=== PATIENT | female | born 1945 | race Hispanic/Latino ===

== ENCOUNTER 2019-02-18 23:19 | Emergency (ER) | payer MEDICARE ==
[2019-02-18] MEDS ORDERED: NACL 0.9% 1000 ML 1,000 ML ONE (23:31)
[2019-02-18] MEDS ORDERED: VICKS SINEX ONE (23:36)
--- NOTE | 2019-02-18 23:45 | Emergency Department Report ---
HPI - General Chief Complaint: Nosebleed Time Seen by Provider: 02/18/19 23:29 - HPI HPI: Room 18 The patient is 73-year-old female presenting with a chief complaint of epistaxis. The patient states at 22:00 this evening she developed a spontaneous nosebleed. Patient denies any recent trauma or picking at her nose. The patient states she had 2 other episodes of epistaxis in the past 4 weeks. Patient states she has not yet seen an ear nose and throat doctor. Patient is currently taking Eliquis for atrial fibrillation Location: Nose Duration: [See above] Quality: [See above] Severity: [See above] Modifying factors: [see above] Context: [see above] Mode of transportation: [not driving] ED Past Medical Hx - Past Medical History Previous Medical History?: Yes Hx Hypertension: Yes Hx Arthritis: Yes Hx Asthma: Yes Additional medical history: PUD. Sarcoidosis - Surgical History Past Surgical History?: Yes Hx Pacemaker: Yes Additional Surgical History: hysterectomy. hernia repair. Patient states that she was taken off Coumadin and digoxin. She had previous hospitalization I presume was for atrial fibrillation when these medications were begun. - Family History Family history: no significant - Social History Smoking Status: Never Smoker Substance Use Type: None - Medications Home Medications: Home Medications Medication Instructions Recorded Confirmed Last Taken Type Fluticasone/Salmeterol [Advair 1 puff IH BID 06/20/13 02/13/15 06/06/13 19:00 History Diskus 250-50 mcg] Levothyroxine [Synthroid] 100 mcg PO QAM 06/20/13 02/13/15 11/17/13 History Simvastatin 10 mg PO QHS 06/20/13 02/13/15 11/16/13 History Losartan [Cozaar] 25 mg PO QDAY #30 tablet 06/25/13 02/13/15 Unknown Rx dilTIAZem CD [Cardizem CD] 300 mg PO QDAY 02/13/15 02/13/15 Unknown History Digoxin [Lanoxin] 0.125 mg PO DAILY@1700 #30 tablet 02/18/15 Unknown Rx Famotidine [Pepcid] 20 mg PO BID #60 tablet 02/18/15 Unknown Rx Warfarin [Coumadin] 7.5 mg PO DAILY@1700 #30 tablet 02/18/15 Unknown Rx dilTIAZem CD [Cardizem CD] 300 mg PO Q24H #30 capsule 02/18/15 Unknown Rx Amoxicillin/Potassium Clav 1 each PO BID #14 tablet 02/19/19 Unknown Rx [Augmentin 500-125 Tablet] ED Review of Systems ROS: Stated complaint: NOSE BLEED Other details as noted in HPI Constitutional: no symptoms reported Eyes: denies: eye pain ENT: epistaxis Respiratory: no symptoms reported Cardiovascular: denies: chest pain Endocrine: no symptoms reported Gastrointestinal: denies: abdominal pain Genitourinary: denies: dysuria Musculoskeletal: denies: back pain Neurological: denies: headache Physical Exam - Physical Exam Vital Signs: Vital Signs 02/18/19 23:25 Temperature 97.1 F L Pulse Rate 59 L Respiratory 18 Rate Blood Pressure 148/59 O2 Sat by Pulse 98 Oximetry Physical Exam: GENERAL: The patient is well-developed well-nourished female lying on stretcher holding called to her nose HEENT: Normocephalic. Atraumatic. Extraocular motions are intact. Patient has moist mucous membranes. NECK: Supple. Trachea midline CHEST/LUNGS: There is no respiratory distress noted. HEART/CARDIOVASCULAR: Regular. There is no tachycardia. There is no gallop rub or murmur. SKIN: There is no rash. There is no edema. There is no diaphoresis. NEURO: The patient is awake, alert, and oriented. The patient is cooperative. The patient has normal speech MUSCULOSKELETAL: There is no evidence of acute injury. ED Course Vital Signs 02/18/19 23:25 Temperature 97.1 F L Pulse Rate 59 L Respiratory 18 Rate Blood Pressure 148/59 O2 Sat by Pulse 98 Oximetry - Reevaluation(s) Reevaluation #1: 02/19/19 00:[address] Patient currently hemostatic. Oropharynx clear Reevaluation #2: 02/19/19 00:52 Patient remains hemostatic. Strong warnings given ED Medical Decision Making - Lab Data Result diagrams: 02/18/19 23:41 02/18/19 23:41 - Medical Decision Making Oxymetazoline soaked gauze placed in bilateral nostrils with tongue depressor clamp placed on nose - Differential Diagnosis epistaxis Critical care attestation.: If time is entered above; I have spent that time in minutes in the direct care of this critically ill patient, excluding procedure time. ED Disposition Clinical Impression: Epistaxis Disposition: DC-01 TO HOME OR SELFCARE Is pt being admited?: No Does the pt Need Aspirin: No Condition: Stable Instructions: Epistaxis (ED) Additional Instructions: Return to the emergency department immediately should you develop worsening symptoms, fever, inability to tolerate food or liquid or any other concerns. Prescriptions: Amoxicillin/Potassium Clav [Augmentin 500-125 Tablet] 1 each PO BID #14 tablet Referrals: KERA PIERCE MD [Primary Care Provider] - 3-5 Days DAVID BRANNON MD [Staff Physician] - [facility] (Dr Brannon is an ear nose and throat doctor (electric motor repairer). Please follow up with him for further evaluation) Time of Disposition: 00:52
[2019-02-18] MEDS ORDERED: NACL 0.9% 1000 ML 1,000 ML IV ONE (23:50)
[2019-02-18] MEDS ORDERED: HYDROGEN PEROXIDE ONE (23:54)
[2019-02-18 23:57] LABS: Basophils # (Auto) 0.1 K/mm3 (0.0-0.1); Basophils % (Auto) 0.7 % (0.0-1.8); Eosinophils # (Auto) 0.2 K/mm3 (0.0-0.4); Eosinophils % (Auto) 1.8 % (0.0-4.3); Hematocrit 43.5 % (30.3-42.9); Hemoglobin 14.4 gm/dl (10.1-14.3); Lymphocytes # (Auto) 0.7 K/mm3 (1.2-5.4); Lymphocytes % (Auto) 5.4 % (13.4-35.0); Mean Corpuscular HGB Conc 33 % (30-34); Mean Corpuscular Volume 85 fl (79-97); Monocytes # (Auto) 0.6 K/mm3 (0.0-0.8); Monocytes % (Auto) 4.9 % (0.0-7.3); Platelet Count 269 K/mm3 (140-440); Red Blood Count 5.12 M/mm3 (3.65-5.03); Red Cell Distribution Width 16.6 % (13.2-15.2)
[2019-02-19 00:07] LABS: INR 1.31 (0.87-1.13)
[2019-02-19 00:08] LABS: Partial Thromboplastin Time 35.6 Sec. (24.2-36.6)
[2019-02-19 00:11] LABS: BUN/Creatinine Ratio 20; Blood Urea Nitrogen 14 mg/dL (7-17); Calcium 9.1 mg/dL (8.4-10.2); Hemolysis Index 9
[2019-02-19] MEDS ORDERED: VICKS SINEX NS ONE (00:35)
[2019-02-19 01:11] VITALS: BP 160/73
== END 2019-02-19 01:10 | disposition home or self-care (01) ==
LOC: ED 23:19
DX: R04.0 Epistaxis (principal); I10 Essential (primary) hypertension; M19.90 Unspecified osteoarthritis, unspecified site; J45.909 Unspecified asthma, uncomplicated; I48.91 Unspecified atrial fibrillation; Z95.0 Presence of cardiac pacemaker; Z90.710 Acquired absence of both cervix and uterus; Z79.899 Other long term (current) drug therapy; Z88.2 Allergy status to sulfonamides
CPT/HCPCS: 36415; 80048; 85025; 85610; 85730; 86850; 86900; 86901; 99284; J7030

== ENCOUNTER 2019-02-20 13:27 | Emergency (ER) | payer MEDICARE ==
--- NOTE | 2019-02-20 13:38 | Emergency Department Report ---
Blank Doc - Documentation Documentation: This is a 73-year-old female that presents with nose bleeding. This initial assessment/diagnostic orders/clinical plan/treatment(s) is/are subject to change based on patient's health status, clinical progression and re- assessment by fellow clinical providers in the ED. Further treatment and workup at subsequent clinical providers discretion. Patient/guardians urged not to elope from the ED as their condition may be serious if not clinically assessed and managed. Initial orders include: 1- Patient sent to MAIN ED for further evaluation and treatment
[2019-02-20 14:25] LABS: Hematocrit 43.2 % (30.3-42.9); Hemoglobin 14.2 gm/dl (10.1-14.3); Mean Corpuscular HGB Conc 33 % (30-34); Mean Corpuscular Volume 85 fl (79-97); Platelet Count 316 K/mm3 (140-440); Red Blood Count 5.07 M/mm3 (3.65-5.03); Red Cell Distribution Width 16.8 % (13.2-15.2)
[2019-02-20 14:36] LABS: INR 1.15 (0.87-1.13)
[2019-02-20 14:40] LABS: BUN/Creatinine Ratio 13; Blood Urea Nitrogen 10 mg/dL (7-17); Hemolysis Index 4
--- NOTE | 2019-02-20 15:00 | Emergency Department Report ---
ED ENT HPI - General Chief complaint: Nosebleed Stated complaint: NOSE PACKING Time Seen by Provider: 02/20/19 13:37 Source: patient Mode of arrival: Ambulatory Limitations: No Limitations - History of Present Illness Initial comments: 73-year-old female seen 2 days ago for nosebleed returns today for repacking. Nose was packed 2 days ago with Afrinsoaked gauze. Patient states she called to make a follow-up appointment with ENT, and appointment is in 3 days. Patient states the office rubber stamp assembler advised her to return to ED if she felt as if she wa s still having some bleeding despite the packing. Patient states it feels as if the packing is coming out. Denies any bleeding around the packing, denies any bleeding in the back of her throat. -: days(s) (2) Location: nose Severity: mild Consistency: constant Improves with: none Worsens with: none Context-Epistaxis: warfarin use - Related Data Home Medications Medication Instructions Recorded Confirmed Last Taken Fluticasone/Salmeterol [Advair 1 puff IH BID 06/20/13 02/13/15 06/06/13 19:00 Diskus 250-50 mcg] Levothyroxine [Synthroid] 100 mcg PO QAM 06/20/13 02/13/15 11/17/13 Simvastatin 10 mg PO QHS 06/20/13 02/13/15 11/16/13 dilTIAZem CD [Cardizem CD] 300 mg PO QDAY 02/13/15 02/13/15 Unknown Previous Rx's Medication Instructions Recorded Last Taken Type Losartan [Cozaar] 25 mg PO QDAY #30 tablet 06/25/13 Unknown Rx Digoxin [Lanoxin] 0.125 mg PO DAILY@1700 #30 tablet 02/18/15 Unknown Rx Famotidine [Pepcid] 20 mg PO BID #60 tablet 02/18/15 Unknown Rx Warfarin [Coumadin] 7.5 mg PO DAILY@1700 #30 tablet 02/18/15 Unknown Rx dilTIAZem CD [Cardizem CD] 300 mg PO Q24H #30 capsule 02/18/15 Unknown Rx Amoxicillin/Potassium Clav 1 each PO BID #14 tablet 02/19/19 Unknown Rx [Augmentin 500-125 Tablet] Allergies Allergy/AdvReac Type Severity Reaction Status Date / Time Sulfa (Sulfonamide Allergy Unknown Verified 11/12/13 23:50 Antibiotics) ED Dental HPI - General Chief complaint: Nosebleed Stated complaint: NOSE PACKING Time Seen by Provider: 02/20/19 13:37 Source: patient Mode of arrival: Ambulatory Limitations: No Limitations - Related Data Home Medications Medication Instructions Recorded Confirmed Last Taken Fluticasone/Salmeterol [Advair 1 puff IH BID 06/20/13 02/13/15 06/06/13 19:00 Diskus 250-50 mcg] Levothyroxine [Synthroid] 100 mcg PO QAM 06/20/13 02/13/15 11/17/13 Simvastatin 10 mg PO QHS 06/20/13 02/13/15 11/16/13 dilTIAZem CD [Cardizem CD] 300 mg PO QDAY 02/13/15 02/13/15 Unknown Previous Rx's Medication Instructions Recorded Last Taken Type Losartan [Cozaar] 25 mg PO QDAY #30 tablet 06/25/13 Unknown Rx Digoxin [Lanoxin] 0.125 mg PO DAILY@1700 #30 tablet 02/18/15 Unknown Rx Famotidine [Pepcid] 20 mg PO BID #60 tablet 02/18/15 Unknown Rx Warfarin [Coumadin] 7.5 mg PO DAILY@1700 #30 tablet 02/18/15 Unknown Rx dilTIAZem CD [Cardizem CD] 300 mg PO Q24H #30 capsule 02/18/15 Unknown Rx Amoxicillin/Potassium Clav 1 each PO BID #14 tablet 02/19/19 Unknown Rx [Augmentin 500-125 Tablet] Allergies Allergy/AdvReac Type Severity Reaction Status Date / Time Sulfa (Sulfonamide Allergy Unknown Verified 06/20/13 23:50 Antibiotics) ED Review of Systems ROS: Stated complaint: NOSE PACKING Other details as noted in HPI Comment: All other systems reviewed and negative ENT: epistaxis ED Past Medical Hx - Past Medical History Previous Medical History?: Yes Hx Hypertension: Yes Hx Congestive Heart Failure: No Hx Diabetes: No Hx Sickle Cell Disease: No Hx Arthritis: Yes Hx Asthma: Yes Hx COPD: No Hx HIV: No Additional medical history: PUD. Sarcoidosis - Surgical History Past Surgical History?: Yes Hx Open Heart Surgery: No Hx Pacemaker: Yes Hx Cholecystectomy: No Hx Appendectomy: No Hx Breast Surgery: No Additional Surgical History: hysterectomy. hernia repair. Patient states that she was taken off Coumadin and digoxin. She had previous hospitalization I presume was for atrial fibrillation when these medications were begun. - Social History Smoking Status: Never Smoker Substance Use Type: None - Medications Home Medications: Home Medications Medication Instructions Recorded Confirmed Last Taken Type Fluticasone/Salmeterol [Advair 1 puff IH BID 06/20/13 02/13/15 06/06/13 19:00 History Diskus 250-50 mcg] Levothyroxine [Synthroid] 100 mcg PO QAM 06/20/13 02/13/15 11/17/13 History Simvastatin 10 mg PO QHS 06/20/13 02/13/15 11/16/13 History Losartan [Cozaar] 25 mg PO QDAY #30 tablet 06/25/13 02/13/15 Unknown Rx dilTIAZem CD [Cardizem CD] 300 mg PO QDAY 02/13/15 02/13/15 Unknown History Digoxin [Lanoxin] 0.125 mg PO DAILY@1700 #30 tablet 02/18/15 Unknown Rx Famotidine [Pepcid] 20 mg PO BID #60 tablet 02/18/15 Unknown Rx Warfarin [Coumadin] 7.5 mg PO DAILY@1700 #30 tablet 02/18/15 Unknown Rx dilTIAZem CD [Cardizem CD] 300 mg PO Q24H #30 capsule 02/18/15 Unknown Rx Amoxicillin/Potassium Clav 1 each PO BID #14 tablet 02/19/19 Unknown Rx [Augmentin 500-125 Tablet] ED Physical Exam - General Limitations: No Limitations General appearance: alert, in no apparent distress - Head Head exam: Present: atraumatic, normocephalic - Eye Eye exam: Present: normal appearance - ENT ENT exam: Present: other (nasal packing in place bilaterally w/ dried blood present, does not appear to be dislodged; no active bleeding or oozing of blood; no signs of blood in posterior oropharynx) - Neck Neck exam: Present: normal inspection - Respiratory Respiratory exam: Present: normal lung sounds bilaterally. Absent: respiratory distress - Cardiovascular Cardiovascular Exam: Present: regular rate, normal rhythm - GI/Abdominal GI/Abdominal exam: Absent: distended - Extremities Exam Extremities exam: Present: normal inspection - Neurological Exam Neurological exam: Present: alert, oriented X3 - Psychiatric Psychiatric exam: Present: normal affect, normal mood - Skin Skin exam: Present: warm, dry, intact, normal color ED Course Vital Signs 02/20/19 02/20/19 02/20/19 13:37 14:46 15:36 Temperature 97.4 F L Pulse Rate 96 H 72 Respiratory 18 19 16 Rate Blood Pressure 140/77 Blood Pressure 143/72 [Left] O2 Sat by Pulse 88 98 99 Oximetry ED Medical Decision Making - Lab Data Result diagrams: 02/20/19 14:14 02/20/19 14:14 - Medical Decision Making - no active bleeding around dressing, no blood in posterior oropharynx - dressing will remain in place - pt to f/u w/ ENT in 3 days - Differential Diagnosis epistaxis Critical care attestation.: If time is entered above; I have spent that time in minutes in the direct care of this critically ill patient, excluding procedure time. ED Disposition Clinical Impression: Epistaxis Disposition: DC-01 TO HOME OR SELFCARE Is pt being admited?: No Condition: Stable Instructions: Epistaxis (ED) Additional Instructions: Please follow up with ENT specialist on appointment date. Time of Disposition: 15:02
[2019-02-20 15:37] VITALS: BP 143/72
== END 2019-02-20 15:40 | disposition home or self-care (01) ==
LOC: ED 13:27
DX: R04.0 Epistaxis (principal); I10 Essential (primary) hypertension; M19.90 Unspecified osteoarthritis, unspecified site; J45.909 Unspecified asthma, uncomplicated; Z95.0 Presence of cardiac pacemaker; Z90.710 Acquired absence of both cervix and uterus; Z79.01 Long term (current) use of anticoagulants; Z79.899 Other long term (current) drug therapy; Z88.2 Allergy status to sulfonamides
CPT/HCPCS: 36415; 80048; 85027; 85610; 99283